=== PATIENT | female | born 1990 | race Caucasian/White ===

== ENCOUNTER 2017-10-22 15:45 | Emergency (ER) | payer OTHER ==
[~2017-10-22] VITALS: Ht 157.5 cm; Wt 70.3 kg
[~2017-10-22 15:45] MED LIST: CIPROFLOXACIN500 M1 PO; IBUPROFEN 600600 M1 PO; KEFLEX500 MG PO; PHENERGAN 25 MG25 M1 PO; TRINATE TABLET1 TAB PO
[2017-10-22] MEDS ORDERED: TOPAMAX50 MG PO ×3 (15:52→16:23)
[2017-10-22] MEDS ORDERED: ATIVAN1 MG PO ×2 (15:52→16:23)
== END 2017-10-22 16:36 | disposition home or self-care (01) ==
LOC: M.ERS 15:45
DX: R25.2 Cramp and spasm (principal); Z76.0 Encounter for issue of repeat prescription; G80.9 Cerebral palsy, unspecified; Z91.040 Latex allergy status

== ENCOUNTER 2018-01-14 15:21 | Emergency (ER) | payer OTHER ==
[~2018-01-14] VITALS: Ht 157.5 cm; Wt 70.3 kg
[~2018-01-14 15:21] MED LIST changes: +ATIVAN1 MG PO; +TOPAMAX50 MG PO
[2018-01-14] MEDS ORDERED: PRENATAL (15:29)
[2018-01-14] MEDS ORDERED: FOLIC ACID1 MG PO (15:29)
[2018-01-14] MEDS ORDERED: ZOFRAN4 MG PO (15:50)
[2018-01-14 16:03] VITALS: BP 114/57
== END 2018-01-14 16:04 | disposition home or self-care (01) ==
LOC: M.ERS 15:21
DX: Z32.01 Encounter for pregnancy test, result positive (principal); Z91.030 Bee allergy status; Z91.040 Latex allergy status

== ENCOUNTER 2018-01-16 16:40 | Emergency (ER) | payer MEDICAID ==
[~2018-01-16] VITALS: Ht 157.5 cm; Wt 70.3 kg
[~2018-01-16 16:40] MED LIST changes: +FOLIC ACID1 MG PO; +PRENATAL; +ZOFRAN4 MG PO
[2018-01-16 17:05] LABS: URINE BILIRUBIN NEGATIVE (Negative); URINE BLOOD 2+ (Negative); URINE CLARITY CLEAR; URINE COLOR YELLOW; URINE GLUCOSE-RANDOM NEGATIVE (Negative); URINE KETONES NEGATIVE (Negative); URINE LEUKOCYTES-REFLEX NEGATIVE (Negative); URINE NITRITE-REFLEX NEGATIVE (Negative); URINE PROTEIN NEGATIVE (Negative); URINE UROBILINOGEN 0.2 E.U./dl (0.2-1.0)
[2018-01-16 17:27] LABS: CASTS None Seen /LPF (None Seen); CRYSTALS None Seen /LPF (None Seen); MUCUS None Seen strn/LPF (None Seen); SQUAMOUS 4-10 Moderate /LPF (0-3)
[2018-01-16 17:28] LABS: BACTERIA-REFLEX 1-9 Few /HPF (None Seen); URINE RBC 0-2 Rare /HPF (0-2)
[2018-01-16 17:29] LABS: URINE WBC-REFLEX None Seen /HPF (0-5)
[2018-01-16 18:23] VITALS: BP 128/56
== END 2018-01-16 18:25 | disposition home or self-care (01) ==
LOC: M.ERS 16:40
PROVIDERS: Nurse Practitioner Family
DX: O20.0 Threatened abortion (principal); Z3A.01 Less than 8 weeks gestation of pregnancy

== ENCOUNTER 2018-06-02 00:56 | Emergency (ER) | payer OTHER, MEDICAID ==
[~2018-06-02] VITALS: Ht 157.5 cm; Wt 76.6 kg
[2018-06-02 01:40] LABS: ABSOLUTE BASOPHILS 0.1 thou/uL (0.0-0.2); ABSOLUTE EOSINOPHILS 0.1 thou/uL (0.0-0.7); ABSOLUTE LYMPHOCYTES 2.4 thou/uL (0.8-5.3); ABSOLUTE MONOCYTES 0.9 thou/uL (0.0-1.2); ABSOLUTE NEUTROPHILS 9.9 thou/uL (1.6-8.1); BASOPHILS 0.6 %; EOSINOPHILS 1.1 %; HEMATOCRIT 31.3 % (37.0-47.0); HEMOGLOBIN 10.6 gm/dL (12.0-15.0); LYMPHOCYTES 18.1 %; MCH 29.1 pg (26.0-34.0); MCHC 33.7 g/dL (28.0-37.0); MCV 86.4 fL (80.0-100.0); MONOCYTES 6.4 %; MPV 9.1 fl. (7.2-11.1); NUCLEATED RBCS 0 /100WBC; PLATELET COUNT* 220 thou/uL (150-400); POLYS 73.8 %; RBC 3.63 mil/uL (4.20-5.00); RDW-CV 13.9 % (10.5-14.5); WBC 13.5 thou/uL (4.0-11.0)
[2018-06-02 01:42] LABS: CALCIUM 8.7 mg/dL (8.5-10.1); CREATININE 0.5 mg/dL (0.6-1.3); POTASSIUM 3.5 mmol/L (3.5-5.1)
[2018-06-02 01:46] LABS: ALBUMIN 2.7 g/dL (3.4-5.0); TOTAL BILIRUBIN 0.4 mg/dL (<0.1-1.0); TOTAL PROTEIN 7.3 g/dL (6.4-8.2)
[2018-06-02 02:16] LABS: URINE BILIRUBIN NEGATIVE (Negative); URINE BLOOD 2+ (Negative); URINE CLARITY SL HAZY; URINE COLOR YELLOW; URINE GLUCOSE-RANDOM NEGATIVE (Negative); URINE KETONES NEGATIVE (Negative); URINE LEUKOCYTES-REFLEX 3+ (Negative); URINE NITRITE-REFLEX POSITIVE (Negative); URINE PROTEIN TRACE (Negative); URINE UROBILINOGEN 0.2 E.U./dl (0.2-1.0)
[2018-06-02 02:17] LABS: BACTERIA-REFLEX >30 Many /HPF (None Seen); CASTS None Seen /LPF (None Seen); MUCUS 0-3 Light strn/LPF (None Seen); SQUAMOUS 0-3 Few /LPF (0-3); URINE RBC >20 Many /HPF (0-2); URINE WBC-REFLEX >25 Many /HPF (0-5)
[2018-06-02 02:20] LABS: WBC CLUMPS Moderate (None Seen)
[2018-06-02 02:21] LABS: CRYSTALS None Seen /LPF (None Seen)
[2018-06-02 02:56] VITALS: BP 127/64
== END 2018-06-02 02:58 | disposition home or self-care (01) ==
LOC: M.ERS 00:56
PROVIDERS: Emergency Medicine
DX: O23.42 Unspecified infection of urinary tract in pregnancy, second trimester (principal); Z3A.24 24 weeks gestation of pregnancy; Z91.040 Latex allergy status; Z91.030 Bee allergy status

== ENCOUNTER 2019-02-16 16:18 | Emergency (ER) | payer OTHER, MEDICAID ==
[~2019-02-16] VITALS: Ht 160 cm; Wt 70.3 kg
[2019-02-16 16:28] VITALS: BP 127/76
[2019-02-16] MEDS ORDERED: NOHOMEMEDICATIONS (16:31)
== END 2019-02-16 17:03 | disposition home or self-care (01) ==
LOC: M.ERS 16:18
DX: J06.9 Acute upper respiratory infection, unspecified (principal); F17.210 Nicotine dependence, cigarettes, uncomplicated; Z91.040 Latex allergy status; Z91.030 Bee allergy status

== ENCOUNTER 2019-04-02 18:07 | Inpatient (IN) | payer OTHER, MEDICAID ==
[~2019-04-02] VITALS: Ht 160 cm; Wt 77.7 kg
--- NOTE | ~2019-04-02 | EEG ---
[address] [address] EEG STUDY REPORT Name: HOWARD GONZALES Ayad Room: [address] IN M.R.#: [id number] Admission: 04/02/19 Attend Phys: Segundo Grossman MD Discharge: Date of : 89 Report #: [id number] THIS REPORT FOR: //name// CC: FAM physician/PCP Segundo Grossman DATE OF SERVICE: 04/03/2019 This patient is admitted with multiple symptoms and those symptoms include facial weakness, loss of vision in the right eye and the patient also has some dizziness. EEG was done to evaluate the possibility of seizure. EEG was done by placing the electrode by standard 10-20 system of electrode placement. Both referential and sequential montages were used for recording. Background activity in this patient's EEG is about 10 Hz and 30 microvolt. This is a symmetrical activity. Photic stimulation is unremarkable. The patient became drowsy that is associated with bilateral slowing and vertex sharp waves. Throughout the record, no active epileptiform activity was noticed. IMPRESSION: This patient's EEG is not showing any active epileptiform activity. It is unremarkable. Thank you very much for this referral. By: [id number] Garcia MD /nt
[~2019-04-02 18:07] MED LIST changes: +NOHOMEMEDICATIONS
[2019-04-02 18:23] VITALS: BP 132/78
[2019-04-02 18:46] LABS: ABSOLUTE EOSINOPHILS 0.4 thou/uL (0.0-0.7); ABSOLUTE LYMPHOCYTES 2.5 thou/uL (0.8-5.3); ABSOLUTE MONOCYTES 0.5 thou/uL (0.0-1.2); ABSOLUTE NEUTROPHILS 3.2 thou/uL (1.6-8.1); BASOPHILS 0.6 %; EOSINOPHILS 6.4 %; HEMOGLOBIN 12.2 gm/dL (12.0-15.0); MCH 27.9 pg (26.0-34.0); MCHC 33.9 g/dL (28.0-37.0); MCV 82.3 fL (80.0-100.0); MONOCYTES 7.7 %; MPV 9.4 fl. (7.2-11.1); NUCLEATED RBCS 0 /100WBC; PLATELET COUNT* 213 thou/uL (150-400); POLYS 48.3 %; RBC 4.38 mil/uL (4.20-5.00); WBC 6.7 thou/uL (4.0-11.0)
[2019-04-02 18:54] LABS: CALCIUM 8.2 mg/dL (8.5-10.1); CREATININE 0.7 mg/dL (0.6-1.3); POTASSIUM 3.7 mmol/L (3.5-5.1)
[2019-04-02 18:59] LABS: ALBUMIN 3.9 g/dL (3.4-5.0); TOTAL BILIRUBIN 0.6 mg/dL (<0.1-1.0); TOTAL PROTEIN 8.3 g/dL (6.4-8.2)
[2019-04-02 23:54] VITALS: BP 109/89
[2019-04-03 00:15] VITALS: BP 106/61
[2019-04-03 04:00] VITALS: BP 90/49
[2019-04-03 08:00] VITALS: BP 91/48
[2019-04-03 10:43] LABS: ALBUMIN 3.5 g/dL (3.4-5.0); CALCIUM 8.2 mg/dL (8.5-10.1); CREATININE 0.8 mg/dL (0.6-1.3); POTASSIUM 3.9 mmol/L (3.5-5.1); TOTAL BILIRUBIN 0.8 mg/dL (<0.1-1.0); TOTAL PROTEIN 7.6 g/dL (6.4-8.2)
[2019-04-03 12:00] VITALS: BP 97/37
--- NOTE | 2019-04-03 13:11 | EKG ---
[place] [address] ELECTROCARDIOGRAM REPORT Name: HOWARD GONZALES Room: [address] ADM IN .R.#: [id number] Admission: 04/02/19 Attend Phys: Segundo Grossman MD Discharge: Date of : 89 Report #: [id number] THIS REPORT FOR: //name// [facility] ED Test Date: 2019-04-02 Test Time: 19:24:12 Pat Name: HOWARD GONZALES Department: Room: [facility] Gender: F [employer]: [place] : 1990 Requested By: Elie Schmitz Order Number: [id number] MD: Gustavo Garcia Measurements Intervals [place] Rate: 68 P: 5 NV: 148 QRS: 47 QRSD: 91 T: 16 QT: 433 QTc: 461 Interpretive Statements Sinus rhythm Baseline wander in lead(s) V1,V2 No previous ECG available for comparison Electronically Signed On 04-03-2019 13:11:40 CPA TAX by Gustavo Garcia [email or web address] <ELECTRONICALLY SIGNED> By: Gustavo Garcia MD, [facility] 04/03/19 1311 D: 11/1922 23 Gustavo Garcia MD, FACC /EPI
--- NOTE | 2019-04-03 13:12 | CON ---
[address] [address] CONSULTATION Name: HOWARD GONZALES Room: [address] IN M.R.#: [id number] Admission: 04/02/19 Attend Phys: Segundo Grossman MD Discharge: Date of : [birth year] Report #: [id number] THIS REPORT FOR: //name// CC: [place] physician/PCP Segundo Grossman DATE OF SERVICE: 04/03/2019 HISTORY OF PRESENT ILLNESS: This is a 28-year-old female patient who was admitted with somewhat unusual history. History I get in this patient is somewhat different than what she provided to Emergency Room physician. She indicated that she had some blurring of her vision about 1 week ago. The episode lasted about a few minutes, but subsequently she was left with some blurry vision and that is continuous. The best I can tell, she never recovered fully from it, but intermittently it does get worse. She has not had any appointment with an anodic operator recently and said she was going to make one. She also had some facial weakness as I understand on the right side. She indicates that is better. REVIEW OF SYSTEMS: Indicate that she has cerebral palsy. According to her, she did have some dyslexia. She took some special classes, but she was able to graduate. Her more problems were spasticity. She had migraines in the past. She indicates migraine headaches are bilateral. She was getting it every week at one time and sometime more than once a week. She has not had any migraine recently. When she had those migraines, she did not have any visual disturbances or any nausea, vomiting associated with that. She does have a history of anxiety and depression, but she does not take any medications for that. She said she does not have a primary care doctor at the moment, but she is looking for one. Rest of the review of system was mostly noncontributory. She is not complaining of any cardiac, respiratory, GI, , musculoskeletal, constitutional, dermatological, hematological, psychiatric, throat, allergic symptom associated with present symptomatology. PAST MEDICAL HISTORY: Positive for diagnosis of cerebral palsy. FAMILY HISTORY: Negative for any early age stroke. SOCIAL HISTORY: She smokes, but says she does not drink any alcohol. PHYSICAL EXAMINATION: Indicate that she is alert and responsive, able to follow simple and complex command. Her speech and concentration looks unremarkable. Cranial nerve examination does indicate blurring of the right eye, but there does not appear to be any visual field deficit in any particular location. I do not see any prominent facial palsy but some asymmetry maybe there in the face. She does have a symmetrical strength. Her reflexes are somewhat hyper. Position sense is present. [place] [address] CONSULTATION Name: HOWARD GONZALES Room: [address] IN M.R.#: [id number] Admission: 04/02/19 Attend Phys: Segundo Grossman MD Discharge: Date of : 89 Report #: [id number] tone. She does not have any [id number] abnormality. I could not look at the patient's fundus. Cardiac examination is unremarkable. No respiratory difficulty was noticed. Pulses are palpable. Blood pressure is 91/48, respiration is 16, pulse is 67, temperature is 98.3. LABORATORY DATA: Indicates a normal white count and normal sodium. MRI of the brain demonstrates some subtle changes. IMPRESSION: Presently, it is difficult to follow up with the diagnosis in this patient. I think she should be evaluated by an anodic operator first to see if there is any evidence for optic neuritis or any ophthalmology problem, which can explain the patient's symptom. If we do find some abnormality, then we will be more aggressive in looking for MS or any neuromyelitis optica lesion. If not, then minor changes on MRI may be because of cerebral palsy or history of migraine headaches. RECOMMENDATIONS: I told her that no anodic operator comes here on a regular basis, but we will see if we can get some anodic operator. If not, then she may have to arrange that as an outpatient to look for any optic neuritis or any problem with the eye. I did order some more blood workup. I did order an echocardiogram to look for patent foramen ovale. We will await this workup and go from there. Thank you very much for this referral. <ELECTRONICALLY SIGNED> By: Pasquale Garcia MD 04/03/19 1312 [id number] Garcia MD /nt
--- NOTE | 2019-04-03 14:19 | 2DMMODE ---
[place] [address] 2 D/M-MODE ECHOCARDIOGRAM Name: HOWARD GONZALES Room: [address] IN [facility]#: [id number] Admission: 04/02/19 Attend Phys: Segundo Grossman, Discharge: Date of : 89 Date of Service: 04/03/19 1419 Report #: [id number] THIS REPORT FOR: //name// APPROVED REPORT Study performed: 04/03/2019 10:08:38 EXAM: Comprehensive 2D, Doppler, and color-flow Echocardiogram Patient Location: In-Patient Room #: [facility] Status: routine BSA: 1.76 HR: 65 bpm BP: 97/37 mmHg Rhythm: NSR Other Information Study Quality: Good Indications CVA/TIA Echo Enhancing Agent Indication: Rule out Shunt Agent(s) / Amount(s) Used: Agitated Saline 10 cc 2D Dimensions IVSd: 8.19 (7-11mm) LVOT Diam: 19.43 (18-24mm) LVDd: 48.70 mm PWd: 7.83 (7-11mm) Ascending Ao: 25.52 (22-36mm) LVDs: 30.40 (25-40mm) Aortic Root: 24.63 mm Volumes Left Atrial Volume (Systole) LA ESV Index: 23.40 mL/m2 Aortic Valve AoV Peak Gustavo.: 1.50 m/s AO Peak Gr.: 8.99 mmHg LVOT Max P.61 mmHg AO Mean Gr.: 5.14 mmHg LVOT Mean P.67 mmHg LVOT Max V: 0.95 m/s AO V2 VTI: 34.08 cm LVOT Mean V: 0.58 m/s LINDA (VTI): 1.95 cm2 LVOT V1 VTI: 22.46 [place] [address] 2 D/M-MODE ECHOCARDIOGRAM Name: HOWARD GONZALES Room: [address]#: [id number] Admission: 04/02/19 Attend Phys: Segundo Grossman, Discharge: Date of : 89 Date of Service: 04/03/19 1419 Report #: [id number] Mitral Valve E/A Ratio: 1.77 MV Decel. Time: 227.91 ms MV E Max Gustavo.: 0.98 m/s MV PHT: 66.09 ms MVA (PHT): 3.33 cm2 TDI E/Lateral E': 6.13 E/Medial E': 6.53 Medial E' Gustavo.: 0.15 m/s Lateral E' Gustavo.: 0.16 m/s Pulmonary Valve PV Peak Gustavo.: 0.87 m/s PV Peak Gr.: 3.01 mmHg Tricuspid Valve RAP Estimate: 5.00 mmHg TR Peak Gr.: 17.09 mmHg RVSP: 22.00 mmHg PA Pressure: 22.00 mmHg Left Ventricle The left ventricle is normal size. There is normal LV segmental wall motion. There is normal left ventricular wall thickness. Left ventricular systolic function is normal. The left ventricular ejection fraction is within the normal range. LVEF is 60-65%. The left ventricular diastolic function is normal. Right Ventricle The right ventricle is normal size. The right ventricular systolic function is normal. Atria The left atrium size is normal. Interatrial septum is intact without evidence of ASD or PFO. The right atrium size is normal. Aortic Valve The aortic valve is normal in structure. Trace aortic regurgitation. There is no aortic valvular stenosis. Mitral Valve The mitral valve is normal in structure. Mild mitral regurgitation. No evidence of mitral valve stenosis. Tricuspid Valve The tricuspid valve is normal in structure. Mild tricuspid regurgitation. estimated pa pressure 30 [place] [address] 2 D/M-MODE ECHOCARDIOGRAM Name: HOWARD GONZALES Room: [address] IN [facility]#: [id number] Admission: 04/02/19 Attend Phys: Segundo Grossman, Discharge: Date of : 89 Date of Service: 04/03/19 1419 Report #: [id number] Pulmonic Valve The pulmonary valve is normal in structure. There is no pulmonic valvular regurgitation. Great Vessels The aortic root is normal in size. IVC is normal in size and collapses >50% with inspiration. Pericardium There is no pericardial effusion. <Conclusion> LVEF is 60-65%. Interatrial septum is intact without evidence of ASD or PFO. <ELECTRONICALLY SIGNED> By: Gustavo Garcia MD, FACC 04/03/19 1419 18 141 Gustavo Garcia MD, FACC /INF
[2019-04-03 16:00] VITALS: BP 95/42
[2019-04-03 20:00] VITALS: BP 96/56
[2019-04-04] VITALS (7 sets, daily range): BP systolic 89–104; BP diastolic 45–57
[2019-04-04 02:06] LABS: GLYCOHEMOGLOBIN (HGB A1C) 5.1 % (4.8-5.6)
[2019-04-04 04:46] LABS: CHOLESTEROL 128 mg/dL (<200); HDL CHOLESTEROL 62 mg/dL (>40); LDL CHOLESTEROL 54 mg/dL (<100); TC:HDL 2.1 Ratio (Not establshd); TRIGLYCERIDE 61 mg/dL (<150); VLDL 12 mg/dL (<40)
[2019-04-04 04:58] LABS: SERUM ASSESSMENT Clear
[2019-04-04 11:37] LABS: APTT 28.2 Seconds (25.0-31.3); PROTIME 10.4 Seconds (9.20-11.50)
[2019-04-04 15:10] LABS: CSF GLUCOSE 56 mg/dl (40-70); CSF PROTEIN 42.2 mg/dl (15-45)
[2019-04-04 16:01] LABS: CSF CLARITY CLEAR; CSF COLOR COLORLESS; CSF RBC 57 /mm3; CSF WBC 1 /mm3 (0-10); VOLUME 4.5 ml
[2019-04-05 10:10] LABS: ANA INTERPRETATION Negative (Negative)
== END 2019-04-04 18:25 | disposition home or self-care (01) | DRG 74 ==
LOC: M.ERS 18:07 → M.TBA-ER 23:16 → M.2W 23:16
PROVIDERS: Internal Medicine; Nurse Practitioner Family; Psychiatry & Neurology Neuromuscular Medicine; ADMIT Internal Medicine
DX: G51.0 Bell's palsy (principal); G43.909 Migraine, unspecified, not intractable, without status migrainosus; Z88.8 Allergy status to other drugs, medicaments and biological substances; Z91.040 Latex allergy status; Z82.49 Family history of ischemic heart disease and other diseases of the circulatory system; Z80.41 Family history of malignant neoplasm of ovary; Z80.8 Family history of malignant neoplasm of other organs or systems; Z81.8 Family history of other mental and behavioral disorders; Z83.3 Family history of diabetes mellitus; Z79.899 Other long term (current) drug therapy